=== PATIENT | female | born 1995 | race Caucasian/White ===

== ENCOUNTER 2016-12-24 12:34 | Emergency (ER) | payer MEDICAID ==
[2016-12-24 12:58] VITALS: BP 127/78
--- NOTE | 2016-12-24 13:13 | EDM.PDOC ---
ED HPI GENERAL MEDICAL PROBLEM - General Chief Complaint: Skin Complaint Stated Complaint: POSS CYST ON THIGH Time Seen by Provider: 12/24/16 13:00 Source of Information: Reports: Patient History Limitations: Reports: No Limitations - History of Present Illness INITIAL COMMENTS - FREE TEXT/NARRATIVE: 21-year-old female presents for evaluation and treatment if possible of this to the right inner thigh. Reports that she first noticed the cyst a few days ago. She states that she's had these frequently. She has required antibiotics and I& D in the past. She has not noticed any pus or drainage from the area. Currently reports a tender, erythematous area to the right medial thigh. She denies any fevers. Reports some nausea and dizziness but also reports that she was recently started on new control. Patient is 5 months . She is not breast-feeding at this time. Reports gestational diabetes during her but her test did not show any additional diabetes. Location: Reports: Lower Extremity, Right - Related Data Allergies Allergy/AdvReac Type Severity Reaction Status Date / Time bee venom protein (honey bee) Allergy Difficulty Verified 12/24/16 12:59 Breathing Home Meds: Home Meds Doxycycline [Vibramycin] 100 mg PO Q12HR #20 cap 12/24/16 [Rx] Past Medical History - Past Health History Medical/Surgical History: Denies Medical/Surgical History Social & Family History - Tobacco Use Smoking Status *Q: Current Every Day Smoker Years of Tobacco use: 10 Packs/Tins Daily: 1 Second Hand Smoke Exposure: No - Caffeine Use Caffeine Use: Reports: Tea - Recreational Drug Use Recreational Drug Use: No ED ROS GENERAL - Review of Systems Review Of Systems: See Below Constitutional: Denies: Fever GI/Abdominal: Reports: Nausea (likely from new control ) Skin: Reports: Erythema (right medial proximal thigh), Lumps (right medial proximal thigh) Neurological: Reports: Dizziness (likely from new control ) ED EXAM, SKIN/RASH Exam: See Below Exam Limited By: No Limitations General Appearance: Alert, WD/WN, No Apparent Distress Respiratory/Chest: No Respiratory Distress, Lungs Clear, Normal Breath Sounds Cardiovascular: Normal Peripheral Pulses, Regular Rate, Rhythm, No Murmur Neurological: Alert, Oriented, Normal Cognition Psychiatric: Normal Affect, Normal Mood Skin: Warm, Dry, Normal Color Location, Skin: Lower Extremity, Right (approximately 5cm in diameter erythematous, tender area to the right medial proximal thigh with a fluctuent 1cm in diameter central area; no pus or drainage noted) Associated features: Warmth, Tenderness Course - Vital Signs Last Recorded V/S: Last Vital Signs Temp 36.7 C 12/24/16 12:57 Pulse 93 12/24/16 12:57 Resp 19 12/24/16 12:57 BP 127/78 12/24/16 12:57 Pulse Ox 98 12/24/16 12:57 Departure - Departure Time of Disposition: 13:10 Disposition: Home, Self-Care 01 Condition: good Clinical Impression: Cellulitis - Discharge Information Prescriptions: Doxycycline [Vibramycin] 100 mg PO Q12HR #20 cap Instructions: Cellulitis, Adult Referrals: PCP,None [Primary Care Provider] - Alethea Mario PA-C [Ordering Only Provider] - Forms: ED Department Discharge Additional Instructions: Take the doxycycline one cap Twice a day for 10 days. Wash with gentle soap and water. [id number] Tylenol or Motrin as needed for pain relief. If you continue to develop cyst I recommend followup with the family is provided. [facility] I recommend Alethea Mario or Heidy Syed. Please call [phone] to schedule with one of those providers. Please return to the ER if your symptoms change or worsen.
== END 2016-12-24 13:30 | disposition home or self-care (01) ==
LOC: JD.ED 12:34
DX: L03.115 Cellulitis of right lower limb (principal); F17.210 Nicotine dependence, cigarettes, uncomplicated; Z91.030 Bee allergy status
CPT/HCPCS: 99283

== ENCOUNTER 2017-03-02 12:01 | Emergency (ER) | payer MEDICAID ==
[2017-03-02 12:16] VITALS: BP 130/74
[2017-03-02] MEDS ORDERED: Acetaminophen 325 MG Tab PO ONE (12:34)
--- NOTE | 2017-03-02 12:40 | EDM.PDOC ---
ED HPI GENERAL MEDICAL PROBLEM - General Chief Complaint: Genitourinary Problem Stated Complaint: Vaginal bleeding Time Seen by Provider: 03/02/17 12:25 Source of Information: Reports: Patient, RN Notes Reviewed History Limitations: Reports: No Limitations - History of Present Illness INITIAL COMMENTS - FREE TEXT/NARRATIVE: 21 year old female presents to the ED today with complaints of two day history of vaginal bleeding, hematuria, and low back pain. The patient says her LMP was 02/15/17 and lasted 5 days. She then began bleeding again two days ago. She reports changing a regular tampon every 30-45 minutes. She is passing clots. She also reports blood in her urine when she voids with a tampon in. She reports dysuria, frequency, and urgency. She has low back pain that is described as sharp and constant. She is 5, para 2. 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 She has two living children. She checked her temperature and says it was 99.5. She has felt feverish. She says there is a possibility of . She is not on any control but says her boyfriend had a vasectomy about 1 year ago. Back Pain Score (Numeric/FACES): 7 - Related Data Allergies Allergy/AdvReac Type Severity Reaction Status Date / Time bee venom protein (honey bee) Allergy Difficulty Verified 03/02/17 12:12 Breathing Home Meds: Home Meds . [No Known Home Meds] 03/02/17 [History] Past Medical History - Past Health History Medical/Surgical History: Denies Medical/Surgical History Psychiatric History: Reports: Depression Endocrine/Metabolic History: Reports: Diabetes, Gestational - Past Surgical History Female Surgical History: Reports: Dilitation & Evacuation, Other (See Below) Other Female Surgeries/Procedures: had a stillbirth Social & Family History - Tobacco Use Smoking Status *Q: Current Every Day Smoker Years of Tobacco use: 7 Packs/Tins Daily: 0.5 Second Hand Smoke Exposure: No - Caffeine Use Caffeine Use: Reports: Tea - Recreational Drug Use Recreational Drug Use: Yes Drug Use in Last 12 Months: No ED ROS GENERAL - Review of Systems Review Of Systems: See Below Constitutional: Reports: No Symptoms. Denies: Fever, Chills, Diaphoresis Respiratory: Reports: No Symptoms. Denies: Shortness of Breath Cardiovascular: Reports: No Symptoms. Denies: Chest Pain GI/Abdominal: Reports: No Symptoms. Denies: Abdominal Pain, Diarrhea, Nausea, Vomiting : Reports: Dysuria, Flank Pain, Frequency, Urgency Musculoskeletal: Reports: Back Pain ED EXAM, RENAL/ - Physical Exam Exam: See Below Exam Limited By: No Limitations General Appearance: Alert, WD/WN, No Apparent Distress Respiratory/Chest: No Respiratory Distress, Lungs Clear, Normal Breath Sounds Cardiovascular: Regular Rate, Rhythm GI/Abdominal: Normal Bowel Sounds, Soft, Non-Tender (Female) Exam: Normal External Exam, Cervical Discharge (bloody discharge with small amount of mucous drainage ), Vaginal Bleeding, Other (no evidence of yeast or BV). No: Cervical Dilatation, Cervical Fluid, Cervical Lesions, Products of Conception, Vaginal Discharge, Vaginal Tears Back Exam: Normal Inspection, Full Range of Motion. No: CVA Tenderness (L), CVA Tenderness (R), Paraspinal Tenderness, Vertebral Tenderness Neurological: Alert, Oriented, Normal Cognition Course - Vital Signs Last Recorded V/S: Last Vital Signs Temp 98.1 F 03/02/17 12:13 Pulse 99 03/02/17 12:13 Resp 14 03/02/17 12:13 BP 130/74 03/02/17 12:13 Pulse Ox 96 03/02/17 12:13 - Orders/Labs/Meds Orders: Active Orders 24 hr Category Date Time Status Pelvic Exam, Set Up [RC] ASDIRECTED Care 03/02/17 12:34 Active Labs: Laboratory Tests 03/02/17 03/02/17 03/02/17 Range/Units 12:47 12:47 12:50 WBC 11.73 H (3.98-10.04) K/mm3 RBC 4.75 (3.98-5.22) M/mm3 Hgb 14.0 (11.2-15.7) gm/L Hct 41.6 (34.1-44.9) % MCV 87.6 (79.4-94.8) fl MCH 29.5 (25.6-32.2) pg MCHC 33.7 (32.2-35.5) g/dl RDW Std Deviation 43.5 (36.4-46.3) fL Plt Count 226 (182-369) K/mm3 MPV 11.7 (9.4-12.3) fl Neut % (Auto) 69.6 (34.0-71.1) % Lymph % (Auto) 20.2 (19.3-51.7) % [place] % (Auto) 8.7 (4.7-12.5) % Eos % (Auto) 1.0 (0.7-5.8) Baso % (Auto) 0.3 (0.1-1.2) % Neut # (Auto) 8.17 H (1.56-6.13) K/mm3 Lymph # (Auto) 2.37 (1.18-3.74) K/mm3 [place] # (Auto) 1.02 H (0.24-0.36) K/mm3 Eos # (Auto) 0.12 (0.04-0.36) K/mm3 Baso # (Auto) 0.03 (0.01-0.08) K/mm3 HCG, Qual Negative (NEGATIVE) Urine Color [place] H (Yellow) Urine Appearance Slt cloudy H (Clear) Urine pH 7.0 (5.0-8.0) Ur Specific [place] 1.025 (1.005-1.030) Urine Protein 1+ H (Negative) Urine Glucose (UA) Negative (Negative) Urine Ketones Negative (Negative) Urine Occult Blood 3+ H (Negative) Urine Nitrite Negative (Negative) Urine Bilirubin Negative (Negative) Urine Urobilinogen 0.2 (0.2-1.0) Ur Leukocyte Esterase Negative (Negative) Urine RBC Too numerous to cnt H (0-5) /hpf Urine WBC 0-5 (0-5) /hpf Ur Epithelial Cells 0-5 (0-5) /hpf Urine Bacteria Rare (FEW) /hpf Urine Mucus Not seen (FEW) /hpf C trachomatis DNA (PCR) N gonorrhoeae DNA (PCR) 03/02/17 Range/Units 13:00 WBC (3.98-10.04) K/mm3 RBC (3.98-5.22) M/mm3 Hgb (11.2-15.7) gm/L Hct (34.1-44.9) % MCV (79.4-94.8) fl MCH (25.6-32.2) pg MCHC (32.2-35.5) g/dl RDW Std Deviation (36.4-46.3) fL Plt Count (182-369) K/mm3 MPV (9.4-12.3) fl Neut % (Auto) (34.0-71.1) % Lymph % (Auto) (19.3-51.7) % [place] % (Auto) (4.7-12.5) % Eos % (Auto) (0.7-5.8) Baso % (Auto) (0.1-1.2) % Neut # (Auto) (1.56-6.13) K/mm3 Lymph # (Auto) (1.18-3.74) K/mm3 [place] # (Auto) (0.24-0.36) K/mm3 Eos # (Auto) (0.04-0.36) K/mm3 Baso # (Auto) (0.01-0.08) K/mm3 HCG, Qual (NEGATIVE) Urine Color (Yellow) Urine Appearance (Clear) Urine pH (5.0-8.0) Ur Specific [place] (1.005-1.030) Urine Protein (Negative) Urine Glucose (UA) (Negative) Urine Ketones (Negative) Urine Occult Blood (Negative) Urine Nitrite (Negative) Urine Bilirubin (Negative) Urine Urobilinogen (0.2-1.0) Ur Leukocyte Esterase (Negative) Urine RBC (0-5) /hpf Urine WBC (0-5) /hpf Ur Epithelial Cells (0-5) /hpf Urine Bacteria (FEW) /hpf Urine Mucus (FEW) /hpf C trachomatis DNA (PCR) Not detected N gonorrhoeae DNA (PCR) Not detected Meds: Medications Discontinued Medications Generic Name Dose Route Start Last Admin Trade Name Ladonna PRN Reason Stop Dose Admin Acetaminophen 975 mg 03/02/17 12:34 03/02/17 12:42 Tylenol PO 03/02/17 12:35 975 mg NOW ONE Administration Azithromycin 1,000 mg 03/02/17 13:48 Zithromax PO 03/02/17 13:49 ONETIME ONE Ceftriaxone Sodium 250 mg 03/02/17 13:48 Rocephin IM 03/02/17 13:49 ONETIME ONE - Re-Assessments/Exams Free Text/Narrative Re-Assessment/Exam: CBC reveals mildly elevated WBC with normal differential. UA is positive for blood but no infection. UA was ordered as straight cath due to vaginal bleeding however the patient refused cath. Hcg negative. Pelvis exam revealed a closed cervical os with cervical motion tenderness. She had a small amount of red blood in the vaginal canal and a small amount of mucous from cervical os. GC/ chlamydia sent per patient request. This takes 2-3 hours. I recommended that we treat with Rocephin and Zithromax now and discharge her home then I would call her with results. The patient wishes to wait for the results before treatment. She gave me her cell phone number to call. She was instructed to f/u with her PCP to discuss her irregular periods. She has a PCP in [place] but cannot remember their name. She says it's written down at home. 03/02/17 15:24 Gc/chlamydia testing is negative. Patient notified via telephone. Departure - Departure Time of Disposition: 13:49 Disposition: Home, Self-Care 01 Condition: Good Clinical Impression: Abnormal vaginal bleeding - Discharge Information Instructions: Abnormal Uterine Bleeding, [id number] Referrals: PCP,Unknown [Primary Care Provider] - Forms: ED Department Discharge Additional Instructions: Tylenol or Ibuprofen as needed for pain Heating pad to abdomen or low back for pain Follow-up with your primary care provider next week to discuss your irregular periods I will call you with the results of your testing. - My Orders Last 24 Hours: My Active Orders 03/02/17 12:34 Pelvic Exam, Set Up [RC] ASDIRECTED - Assessment/Plan Last 24 Hours: My Active Orders 03/02/17 12:34 Pelvic Exam, Set Up [RC] ASDIRECTED
[2017-03-02] MEDS ORDERED: Azithromycin 250 MG Tab PO ONE (13:48)
[2017-03-02] MEDS ORDERED: cefTRIAXone 250 MG Vial IM ONE (13:48)
[2017-03-02 15:05] LABS: C. TRACHOMATIS BY PCR NOT DETECTED; N. GONORRHOEAE BY PCR NOT DETECTED
== END 2017-03-02 14:00 | disposition home or self-care (01) ==
LOC: JD.ED 12:01
DX: N93.9 Abnormal uterine and vaginal bleeding, unspecified (principal); F17.210 Nicotine dependence, cigarettes, uncomplicated; Z91.030 Bee allergy status
CPT/HCPCS: 36415; 81001; 84703; 85025; 87491; 87591; 99284; A9270; 99283

== ENCOUNTER 2017-03-11 11:09 | Emergency (ER) | payer MEDICAID ==
[2017-03-11 11:18] VITALS: BP 132/78
--- NOTE | 2017-03-11 12:21 | EDM.PDOC ---
ED HPI GENERAL MEDICAL PROBLEM - General Chief Complaint: Skin Complaint Stated Complaint: FEVER,SORE THROAT,SORES Time Seen by Provider: 03/11/17 11:31 Source of Information: Reports: Patient History Limitations: Reports: No Limitations - History of Present Illness INITIAL COMMENTS - FREE TEXT/NARRATIVE: 21 year old female presents for evaluation and treatment of multiple complaints. Patient reports fevers, sore throat and left ear pain. Present the last 3 days. Patient reports a fever of 101 on Saturday and a fever of 99.9 yesterday. Patient reports the sore throat started today. She also reports left ear pain but states this could be from swimming recently. Denies any cough, nausea or vomiting. No recent travel or ill contacts. Additional the patient complains of skin sores and pustules. Present to the bilateral inner thighs and right underarm. No treatments this far. Was seen by myself in Nov, 2016 for cellulites to this area. Prescribed doxycycline. Since then, the cellulites has resolved but she continues to develop new pustules and sores. Patient has a PCP. she has not yet seen her PCP for care or follow-up. Right Pelvic Pain Score (Numeric/FACES): 7 - Related Data Allergies Allergy/AdvReac Type Severity Reaction Status Date / Time bee venom protein (honey bee) Allergy Difficulty Verified 03/11/17 11:17 Breathing Home Meds: Home Meds . [No Known Home Meds] 03/02/17 [History] Past Medical History - Past Health History Medical/Surgical History: Denies Medical/Surgical History Psychiatric History: Reports: Depression Endocrine/Metabolic History: Reports: Diabetes, Gestational - Past Surgical History Female Surgical History: Reports: Dilitation & Evacuation, Other (See Below) Other Female Surgeries/Procedures: had a stillbirth Social & Family History - Tobacco Use Smoking Status *Q: Current Every Day Smoker Years of Tobacco use: 7 Packs/Tins Daily: 0.5 Second Hand Smoke Exposure: No - Caffeine Use Caffeine Use: Reports: Coffee - Recreational Drug Use Recreational Drug Use: No Drug Use in Last 12 Months: No ED ROS GENERAL - Review of Systems Review Of Systems: See Below Constitutional: Reports: Fever, Malaise HEENT: Reports: Ear Pain (left), Throat Pain Respiratory: Denies: Cough GI/Abdominal: Denies: Nausea, Vomiting Skin: Reports: Wound (multiple sores to the bilateral proximal medial legs and right underarm) ED EXAM, SKIN/RASH Exam: See Below Exam Limited By: No Limitations General Appearance: Alert, WD/WN, No Apparent Distress Ears: Normal External Exam, Normal Canal, Hearing Grossly Normal, Other (left TM is erythematous; no infection appreciated) Nose: Normal Inspection Throat/Mouth: Normal Inspection, Normal Lips, Normal Teeth, No Airway Compromise , Other (tonsils are erythematous and swollen; 1 area or exudate appreciated on the left tonsil ) Neck: Normal Inspection, Lymphadenopathy (L), Lymphadenopathy (R) Respiratory/Chest: No Respiratory Distress, Lungs Clear Cardiovascular: Normal Peripheral Pulses, Regular Rate, Rhythm, No Murmur Neurological: Alert, Oriented Psychiatric: Normal Affect, Normal Mood Skin: Warm, Dry, Other (approximatley 5mm in diameter pustule to the right under arm; open pustule to the right lower abdomen around the belt line approximetely 1cm in diameter draining a clear serous fluid minimal surrouding erythema) Associated features: Weeping Course - Vital Signs Last Recorded V/S: Last Vital Signs Temp 36.4 C 03/11/17 11:14 Pulse 96 03/11/17 11:14 Resp 16 03/11/17 11:14 BP 132/78 03/11/17 11:14 Pulse Ox 98 03/11/17 11:14 - Re-Assessments/Exams Free Text/Narrative Re-Assessment/Exam: 03/11/17 12:55 rapid strep is negative. likely viral pharyngitis. pustules do not have surrounding erythema. Will discharge home. Discharge instructions as documented. Departure - Departure Time of Disposition: 12:55 Disposition: Home, Self-Care 01 Condition: Fair Clinical Impression: Viral pharyngitis - Discharge Information Instructions: Pharyngitis, [id number] Referrals: PCP,None [Primary Care Provider] - Forms: ED Department Discharge Additional Instructions: Wash the sores with gentle soap and water twice a day. Apply Neosporin, bacitracin ointment or another topical antibacterial ointment to the wounds twice a day. Take [id number] Tylenol and Motrin as needed for pain and fever relief. Rest. Make sure you're drinking plenty of fluids. Expect the viral upper respiratory infection to last 1-2 weeks. If this goes beyond 2 weeks follow-up with your primary care provider. If you notice increasing redness around any of the sores. Marked them with a pen and present to the clinic or the ER. Please return to the ER if your symptoms change or worsen.
== END 2017-03-11 13:13 | disposition home or self-care (01) ==
LOC: JD.ED 11:09
DX: J02.8 Acute pharyngitis due to other specified organisms (principal); B97.89 Other viral agents as the cause of diseases classified elsewhere; F32.9 Major depressive disorder, single episode, unspecified; F17.210 Nicotine dependence, cigarettes, uncomplicated; Z91.018 Allergy to other foods
CPT/HCPCS: 87081; 87430; 99282; 99283